=== PATIENT | male | born 1980 | race Two or more races ===

== ENCOUNTER 2018-06-23 13:27 | Emergency (ER) | payer BC ==
--- NOTE | 2018-06-23 13:59 | EDM.PDOC ---
ED HPI GENERAL MEDICAL PROBLEM - General Chief Complaint: Lower Extremity Injury/Pain Stated Complaint: RIGHT LEG SWELLING AND PAIN Time Seen by Provider: 06/23/18 13:56 Source of Information: Reports: Patient History Limitations: Reports: No Limitations - History of Present Illness INITIAL COMMENTS - FREE TEXT/NARRATIVE: HISTORY AND PHYSICAL: History of present illness: Patient is 37-year-old male here with complaint of swelling of his right lower extremity. He states it started about 1 week ago, swelling has gone down some but states it feels tight and painful. He denies injury or trauma. He does smoke about 1 pack per week x 20 years. Denies recent travel. Denies chest pain , shortness of breath, fevers, chills, nausea, vomiting, abdominal pain, urinary or bowel symptoms. He does note that he has had pain in the right knee and has been working for 11 days straight and believes this is contributing to his pain and swelling. Review of systems: As per history of present illness and below otherwise all systems reviewed and negative. Past medical history: As per history of present illness and as reviewed below otherwise noncontributory. Surgical history: As per history of present illness and as reviewed below otherwise noncontributory. Social history: No reported history of drug or alcohol abuse. Family history: As per history of present illness and as reviewed below otherwise noncontributory. Physical exam: General: Patient sitting comfortably in no acute distress and nontoxic appearing HEENT: Atraumatic, normocephalic, pupils reactive, negative for conjunctival pallor or scleral icterus, mucous membranes moist, throat clear, neck supple, nontender, trachea midline. No meningeal signs. Lungs: Clear to auscultation, breath sounds equal bilaterally, chest nontender. Heart: S1S2, regular, negative for clicks, rubs, or overt murmur. Abdomen: Soft, nondistended, nontender. Negative for masses or hepatosplenomegaly. Negative for costovertebral tenderness. No rigidity, rebound , guarding. Pelvis: Stable nontender. Genitourinary: Deferred. Rectal: Deferred. Extremities: Right calf is swollen with pain to palpation. Pain to palpation of the knee and with ROM. There is no erythema, warmth, or open skin. Atraumatic, negative for cords. Neurovascular unremarkable. Neuro: Awake, alert, oriented. Cranial nerves II through XII unremarkable. Cerebellum unremarkable. Motor and sensory unremarkable throughout. Exam nonfocal. Notes: Diagnostics: Venous doppler US right LE, CBC, CMP Declines knee x-ray Therapeutics: None Prescriptions: None Impression: Right leg swelling, Right knee pain Plan: 1. Ice, elevate, and motrin as needed. 2. Follow up with primary care provider or orthopedics, call the number provided to schedule an appointment 3. Return to ED as needed as discussed Definitive disposition and diagnosis as appropriate pending reevaluation and review of above. Right Lower Leg Pain Score (Numeric/FACES): 5 - Related Data Allergies Allergy/AdvReac Type Severity Reaction Status Date / Time No Known Allergies Allergy Verified 06/23/18 14:57 Home Meds: Home Meds . [No Known Home Meds] 06/23/18 [History] Review of Systems - Review of Systems Review Of Systems: ROS reveals no pertinent complaints other than HPI. ED EXAM, GENERAL - Physical Exam Exam: See Below (see dictation) Course - Vital Signs Last Recorded V/S: Last Vital Signs Temp 98.3 F 06/23/18 13:45 Pulse 90 06/23/18 13:45 Resp 18 06/23/18 13:45 BP 137/78 06/23/18 14:57 Pulse Ox 97 06/23/18 13:45 - Orders/Labs/Meds Orders: Active Orders 24 hr Category Date Time Status COMPREHENSIVE METABOLIC PN,CMP [CHEM] Stat Lab 06/23/18 14:58 Results Labs: Laboratory Tests 06/23/18 06/23/18 Range/Units 14:58 14:58 WBC 7.23 (4.0-11.0) K/uL RBC 4.83 (4.50-5.90) M/uL Hgb 14.5 (13.0-17.0) g/dL Hct 41.6 (38.0-50.0) % MCV 86.1 (80.0-98.0) fL MCH 30.0 (27.0-32.0) pg MCHC 34.9 (31.0-37.0) g/dL RDW Std Deviation 39.1 (28.0-62.0) fl RDW Coeff of [place] 13 (11.0-15.0) % Plt Count 237 (150-400) K/uL MPV 8.30 (7.40-12.00) fL Neut % (Auto) 65.2 (48.0-80.0) % Lymph % (Auto) 25.3 (16.0-40.0) % [place] % (Auto) 8.0 (0.0-15.0) % Eos % (Auto) 1.2 (0.0-7.0) % Baso % (Auto) 0.3 (0.0-1.5) % Neut # (Auto) 4.7 (1.4-5.7) K/uL Lymph # (Auto) 1.8 (0.6-2.4) K/uL [place] # (Auto) 0.6 (0.0-0.8) K/uL Eos # (Auto) 0.1 (0.0-0.7) K/uL Baso # (Auto) 0.0 (0.0-0.1) K/uL Nucleated RBC % 0.0 /100WBC Nucleated RBCs # 0 K/uL Potassium 4.2 (3.5-5.1) mmol/L Chloride 105 (98-107) mmol/L Carbon Dioxide 26.5 (21.0-32.0) mmol/L BUN 13 (7.0-18.0) mg/dL Creatinine 0.9 (0.8-1.3) mg/dL Est Cr Clr Drug Dosing 100.43 mL/min Estimated GFR (MDRD) > 60.0 ml/min Glucose 107 H (74-106) mg/dL Calcium 8.5 (8.5-10.1) mg/dL Total Bilirubin 0.3 (0.2-1.0) mg/dL AST 17 (15-37) IU/L ALT 33 (14-63) IU/L Alkaline Phosphatase 79 (46-116) U/L Total Protein 7.4 (6.4-8.2) g/dL Albumin 3.4 (3.4-5.0) g/dL Globulin 4.0 (2.6-4.0) g/dL Albumin/Globulin Ratio 0.9 (0.9-1.6) Departure - Departure Time of Disposition: 16:09 Disposition: Home, Self-Care 01 Condition: Good Clinical Impression: Right leg swelling, Right knee pain - Discharge Information Referrals: PCP,None [Primary Care Provider] - Forms: ED Department Discharge Additional Instructions: The following information is given to patients seen in the emergency department who are being discharged to home. This information is to outline your options for follow-up care. We provide all patients seen in our emergency department with a follow-up referral. The need for follow-up, as well as the timing and circumstances, are variable depending upon the specifics of your emergency department visit. If you don't have a primary care physician on staff, we will provide you with a referral. We always advise you to contact your personal physician following an emergency department visit to inform them of the circumstance of the visit and for follow-up with them and/or the need for any referrals to a consulting specialist. The emergency department will also refer you to a specialist when appropriate. This referral assures that you have the opportunity for follow-up care with a specialist. All of these measure are taken in an effort to provide you with optimal care, which includes your follow-up. Under all circumstances we always encourage you to contact your private physician who remains a resource for coordinating your care. When calling for follow-up care, please make the office aware that this follow-up is from your recent emergency room visit. If for any reason you are refused follow-up, please contact the [facility] Emergency Department at and asked to speak to the emergency department charge nurse. [facility] [address] [place] [id number] [address] [facility] Professional Building [address], [address] [place] [address] 1. Ice, elevate, and motrin as needed. 2. Follow up with primary care provider or orthopedics, call the number provided to schedule an appointment 3. Return to ED as needed as discussed - My Orders Last 24 Hours: My Active Orders 06/23/18 14:58 COMPREHENSIVE METABOLIC PN,CMP [CHEM] Stat - Assessment/Plan Last 24 Hours: My Active Orders 06/23/18 14:58 COMPREHENSIVE METABOLIC PN,CMP [CHEM] Stat
--- NOTE | 2018-06-23 14:42 | US ---
ULTRASOUND EXAMINATION OF the right lower extremity WITH DOPPLER HISTORY: Pain FINDINGS: Examination of the right leg was performed from the groin to the calf region. All visualized segments including common femoral, proximal greater saphenous, superficial femoral, popliteal and calf veins appear patent with good compressibility and augmentation. There is no evidence of deep vein thrombosis. Mild edema within the soft tissues of the region of concern. IMPRESSION: No evidence of a DVT.
[2018-06-23 16:01] LABS: CHLORIDE,CL 105 mmol/L (98-107)
[2018-06-23 16:55] LABS: SODIUM,NA 143 mmol/L (136-148)
== END 2018-06-23 16:29 | disposition home or self-care (01) ==
LOC: MW.ED 13:27
DX: M25.561 Pain in right knee (principal); M79.89 Other specified soft tissue disorders
CPT/HCPCS: 36415; 80053; 85025; 93971-26-RT; 93971-RT; 99282; 99284-25